=== PATIENT | female | born 1990 ===

== ENCOUNTER 2018-09-23 06:16 | Day surgery (SDC) | payer OTHER ==
--- NOTE | 2018-09-21 15:11 | Pre-Procedure Note/Attestation ---
Pre-Procedure Note/Attestation Complete Prior to Procedure Planned Procedure: bilateral Procedure Narrative: 1. ORIF nasal fracture 2. Septoplasty 3. Submucous resection bilateral inferior turbinates Indications for Procedure Pre-Operative Diagnosis: 1. Nasal fracture 2. Septoplasty 3. hypertrophied bilateral inferior turbinates Attestation I attest that I discussed the nature of the procedure; its benefits; risks and complications; and alternatives (and the risks and benefits of such alternatives ), prior to the procedure, with the patient (or the patient's legal open claims representative). I attest that, if there was a reasonable possibility of needing a blood transfusion, the patient (or the patient's legal open claims representative) was given the [place] [facility] standardized written summary, pursuant to the Luis Kasi Blood Safety Act ([place] Health and Safety Code # 1645, as amended). I attest that I re-evaluated the patient just prior to the surgery and that there has been no change in the patient's H&P. Keanu Bradford MD Sep 21, 2018 15:11
--- NOTE | 2018-09-21 15:12 | Brief Operative Note ---
Immediate Post Operative Note Operative Note Chief Complaint: Nasal deformity and nasal airway obstruction Pre-op Diagnosis: 1. Nasal fracture 2. Septoplasty 3. hypertrophied bilateral inferior turbinates Procedure: 1. ORIF nasal fracture 2. Septoplasty 3. Submucous resection bilateral inferior turbinates Post-op Diagnosis: same as pre-op Surgeon: Keanu Bradford Salon Customer Experience Specialist: none Additional Surgeons: none Anesthesiologist: Jaime Anesthesia: general Specimen: none Complications: none Condition: stable Fluids: D5LR Estimated Blood Loss: volume - 25cc Drains: none Packing: Sino-nasal gel Implant(s) used?: No Keanu Bradford MD Sep 21, 2018 15:12
--- NOTE | 2018-09-21 15:15 | Discharge Instructions ---
Discharge Instructions Discharge Instructions Follow up with: Daljit bran-pt has appt. at Dr. Bradford's office next week already scheduled Diet: regular Resume Normal Activity?: No Activity: light activity Pneumonia Vaccine: pt refused vaccine Influenza Vaccine (Dec to May): pt refused vaccine Follow Up Orders Pt. has printed instructions discussed and given to pt. at her pre op last week in my office. Rx for Z elli and [place] also sent electronically last week for post op use. Return to Work/School on: Oct 07, 2018 Special Instructions ice to face x 48 hours For Surgical Patients Dressing Care: may change May shower: No For Congestive Heart Failure Reminder Report to your physician any weight gain of 5 pounds or more in one week. Keanu Bradford MD Sep 21, 2018 15:15
--- NOTE | 2018-09-21 15:28 | History and Physical ---
History & Physical (DB) History & Physical History & Physical Chief Complaint: Nasal fracture with nasal airway obstruction. Reason for Hospitalization: outpt. nasal surgery History obtained from: Chart and Patient HPI: Meghan is a 28 year old female who presents with nasal deformity, septal deviation and hypertrophied inferior turbinates. Past Medical History: Childbirth x 1 Social History: Single, 1 9yo daughter Past Medical History:Childbirth Diagnosis:1. Nasal deformity secondary to fracture, Nasal septal deviation, Hypertrophied inferior turbinates. 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 Smoking status:smokes daily Alcohol use: social Drug use:none control/ protection:no BCP Family History:Unremarkable Allergies:Amoxicillin-rash Medications: Elavil for sleep Review of Symptoms: General ROS: no weight loss or fever Psychological ROS: no depression or mood changes, no memory loss Ophthalmic ROS: no visual changes or eye irritation ENT ROS: no nasal congestion, hearing loss, dizziness. POOR NASAL BREATHING Allergy and Immunology ROS: no allergic symptoms or urticaria Hematological and Lymphatic ROS: no swollen glands, unusual bleeding or bruising Endocrine ROS: no polyuria, polydipsia, weight changes, temperature intolerance Respiratory ROS: no cough, shortness of breath, or wheezing Cardiovascular ROS: no chest pain or dyspnea on exertion Gastrointestinal ROS: no abdominal pain, change in bowel habits, or black or bloody stools Musculoskeletal ROS: no myalgias or arthralgias Neurological ROS: no TIA or stroke symptoms Dermatological ROS: no new or changing skin lesions, rashes or pruritis Physical Exam Vitals: Intake/Output Summary (Last 24 hours) General appearance: alert, cooperative, no distress, appears stated age Head: Normocephalic, without obvious abnormality, atraumatic Eyes: conjunctivae/corneas clear. PERRL, EOM's intact. Throat: Lips, mucosa, and tongue normal. Teeth and gums normal NOSE: NASAL DEFORMITY, SEPTAL DEVIATION, HYPERTROPHIED INFERIOR TURBINATES. Neck: supple, symmetrical, trachea midline, no adenopathy, thyroid: not enlarged, symmetric, no tenderness/mass/nodules, no carotid bruit and no JVD Lungs: clear to auscultation bilaterally Heart: regular rate and rhythm, S1, S2 normal, no murmur, click, rub or gallop Abdomen: soft, non-tender. Bowel sounds normal. No masses, no organomegaly Extremities: extremities normal, atraumatic, no cyanosis or edema Pulses: 2+ and symmetric Skin: Skin color, texture, turgor normal. No rashes or lesions Neurologic: Grossly normal Laboratories:none indicated in otherwise healthy 28 yo female. test will be done on admission. Assessment/Problem List: 1. Nasal deformity secondary to fracture 2. Septal deviation 3. Hypertrophied inferior turbinates Plan: 1. ORIF nasal fracture 2. Septoplasty 3. Submucous resection bilateral inferior turbinates DVT Prophylaxis: scd Code status: full Hospital Classification declaration: Based on this initial evaluation, and depending on the patient's clinical course, I anticipate that this patient will NOT require hospitalization. Disposition: Once the patient is stable to leave the hospital, I anticipate the patient will likely be discharged to the following environment-Home I spent 70 minutes on this patient's case, and minutes was dedicated to counseling and/or care coordination. Case was discussed with Time of note may not reflect time of encounter. Keanu Bradford MD Sep 21, 2018 15:27
[2018-09-23] VITALS (15 sets, daily range): BP systolic 117–159; BP diastolic 76–105
[~2018-09-23] VITALS: Ht 167.6 cm; Wt 71.2 kg
[2018-09-23] MEDS ORDERED: Lidocaine 1% 10mg/ml/Epi 0.005mg/ml 30ml vial INJ ONE (07:06)
[2018-09-23] MEDS ORDERED: Cocaine HCl 4% 4ml vial TOPIC ONE (07:06)
[2018-09-23] MEDS ORDERED: Bupivacaine w/Epi 0.5% 30ml Vial INJ ONE (07:06)
[2018-09-23] MEDS ORDERED: LR 1000ml 1,000 ML IVLG SCH (07:13)
[2018-09-23] MEDS ORDERED: Labetalol 5mg/ml 20ml vial IV PRN (07:15)
[2018-09-23] MEDS ORDERED: Meperidine 50mg/ml Inj(FOR RIGORS ONLY) IVP PRN (07:15)
[2018-09-23] MEDS ORDERED: fentaNYL 100 mcg/2 mL IV PRN (07:15)
[2018-09-23] MEDS ORDERED: Midazolam 2mg/2ml Inj IVP PRN (07:15)
[2018-09-23] MEDS ORDERED: Azithromycin 500 MG in NS 275 ML IV ONE (07:15)
[2018-09-23] MEDS ORDERED: Ketorolac 30mg Inj IV PRN ×2 (07:15)
[2018-09-23] MEDS ORDERED: Metoclopramide 10mg/2ml Inj IVP PRN ×2 (07:15→08:30)
[2018-09-23] MEDS ORDERED: Atropine Sulfate 0.4mg/ml inj IVP PRN (07:15)
[2018-09-23] MEDS ORDERED: Hydromorphone 0.5mg/0.5ml inj IVP PRN (07:15)
[2018-09-23] MEDS ORDERED: HYDROcodone/Acetamin 7.5/325 tab ORAL PRN (07:15)
[2018-09-23] MEDS ORDERED: Acetaminophen (Non formulary) 100 ML IV ONE (07:15)
[2018-09-23] MEDS ORDERED: DiphenhydrAMINE 50mg/ml Inj IVP PRN (07:15)
[2018-09-23] MEDS ORDERED: LORazepam Inj 2mg/ml 1ml IV PRN (07:15)
[2018-09-23] MEDS ORDERED: HYDROcodone/Acetamin 5/325 tab ORAL PRN ×2 (07:15→08:30)
[2018-09-23] MEDS ORDERED: oxyCODONE HCL/Acetaminophen 5/325mg ORAL PRN (07:15)
--- NOTE | 2018-09-23 07:19 | Anethesia Preoperative Eval ---
Anesthesia Pre-op PMH/ROS General Date of Evaluation: Sep 23, 2018 Time of Evaluation: 07:24 Anesthesiologist: Jaime ASA Score: ASA 2 Mallampati Score Class I : Soft palate, uvula, fauces, pillars visible Class II: Soft palate, uvula, fauces visible Class III: Soft palate, base of uvula visible Class IV: Only hard plate visible Mallampati Classification: Class I Surgeon: Suzette Diagnosis: Nasal Deformity Surgical Procedure: Septoplasty, SMR Turbinates Anesthesia History: none Family History: no anesthesia problems Allergies: Coded Allergies: AMOXICILLIN (Verified Allergy, Intermediate, Rash, 09/21/18) NICKEL (Verified Allergy, Intermediate, rash, 09/22/18) Medications: see eMAR Patient NPO?: Yes Past Medical History Pulmonary: Reports: other - Bronchitis Gastrointestinal/Genitourinary: Reports: other - Irritable Bowel Neurologic/Psychiatric: Reports: depression/anxiety Anesthesia Pre-op Phys. Exam Physician Exam Last Vital Signs Date Time Temp Pulse Resp B/P (MAP) Pulse Ox O2 Delivery O2 Flow Rate FiO2 09/23/18 06:58 Room Air 09/23/18 06:44 97.2 92 18 137/82 99 Constitutional: NAD Neurologic: CN 2-12 intact Cardiovascular: RRR Respiratory: CTA Gastrointestinal: S/NT/ND Airway Exam Mallampati Score: Class I MO: full ROM: full Teeth: intact Anesthesia Pre-op A/P Labs Urine Test Test 09/23/18 06:30 Urine HCG, Qualitative Negative (NEGATIVE) Risk Assessment & Plan Assessment: ASA 2 Plan: GA, SED Status Change Before Surgery: No Pre-Antibiotics Dru Gram Ancef IV Given Within 1 Hr of Incision: Yes Time Given: 07:36 Kirill Sandoval MD Sep 23, 2018 07:19
--- NOTE | 2018-09-23 07:20 | Immediate Post-Op Evaluation ---
Immediate Post-Op Evalulation Immediate Post-Op Evalulation Procedure: Septoplasty, SMR Turbinates Date of Evaluation: Sep 23, 2018 Time of Evaluation: 08:45 IV Fluids: 700 LR Blood Products: 0 Estimated Blood Loss: 75 Urinary Output: 0 Blood Pressure Systolic: 154 Blood Pressure Diastolic: 105 Pulse Rate: 106 Respiratory Rate: 16 O2 Sat by Pulse Oximetry: 100 Temperature (Fahrenheit): 97.1 Pain Score (1-10): 2 Nausea: No Vomiting: No Complications 0 Patient Status: awake, reacts, patent, extubated, none Hydration Status: adequate Dru Gram Ancef IV Given Within 1 Hr of Incision: Yes Time Given: 07:36 Kirill Sandoval MD Sep 23, 2018 07:20
[2018-09-23] MEDS ORDERED: Dexamethasone 4mg/ml vial ONE (07:21)
[2018-09-23] MEDS ORDERED: Sodium Chloride 10ml vial INJ ONE (07:21)
[2018-09-23] MEDS ORDERED: Lidocaine 1% MPF 10mg/ml 5ml ONE (07:21)
--- NOTE | 2018-09-23 07:21 | 48 Hour Post Anesthesia Eval ---
Post Anesthesia Evaluation Procedure: Septoplasty, SMR Turbinates Date of Evaluation: Sep 23, 2018 Time of Evaluation: 10:54 Blood Pressure Systolic: 122 0: 73 Pulse Rate: 81 Respiratory Rate: 18 Temperature (Fahrenheit): 98.2 O2 Sat by Pulse Oximetry: 100 Airway: patent Nausea: No Vomiting: No Pain Intensity: 2 Hydration Status: adequate Cardiopulmonary Status: Stable Mental Status/LOC: patient returned to baseline Follow-up Care/Observations: 0 Post-Anesthesia Complications: 0 Follow-up care needed: ready to discharge Kirill Sandoval MD Sep 23, 2018 07:21
[2018-09-23] MEDS ORDERED: Dexamethasone 4mg/ml vial IVP ONE (07:30)
[2018-09-23] MEDS ORDERED: Sterile Water Irrig 1000ml IRRIG ONE (07:39)
[2018-09-23] MEDS ORDERED: Propofol 200mg/20ml IV ONE (07:39)
[2018-09-23] MEDS ORDERED: NS Irrig 1000ml ONE (07:39)
[2018-09-23] MEDS ORDERED: HYDROmorphone 1mg/ml Carpuject SUBQ PRN (08:30)
--- NOTE | 2018-09-23 12:00 | Operative Note - Dictated ---
DATE OF OPERATION: 09/23/2018 SURGEON: Keanu Bradford M.D. TIPPLE BOSS: None. ANESTHESIOLOGIST: Kirill Sandoval M.D. ANESTHESIA: LMA general anesthesia, 17 mL of 50:50 mixture, 1% lidocaine with 1:100,000 epinephrine and bupivacaine 0.5% with 1:200,000 epinephrine. PREOPERATIVE DIAGNOSES: 1. Nasal fracture. 2. Septal deviation. 3. Hypertrophied right and left inferior turbinates. POSTOPERATIVE DIAGNOSES: 1. Nasal fracture. 2. Septal deviation. 3. Hypertrophied right and left inferior turbinates. FINDINGS: 1. Nasal fracture. 2. Septal deviation. 3. Hypertrophied right and left inferior turbinates. PROCEDURE: 1. Open reduction and internal fixation nasal fracture. 2. Septoplasty. 3. Submucous resection of the right inferior turbinate. 4. Submucous resection of the left inferior turbinate. TECHNIQUE: Time-out was performed. All agreed as to the procedure and equipment required. I then injected with the aforementioned lidocaine, Marcaine, and epinephrine mixture. A 4 mL of 4% topical cocaine were placed in the nose, two nasal pledgets in either nostril accounted for at the end of the case. I then made an incision in the left septum with a #15 blade. Elevated submucosally with dental [place] sub-periosteum and sub-perichondrium. I then removed part of the vomer on either side and the lower 3 mm of the septum leaving a centimeter inferiorly of the quadrangular cartilage. I then sewed this back together with a 4-0 plain suture. I then made a small incision on either inferior turbinate with a #15 blade. Starting on the right side placed a Radiofrequency wand #45 setting of 6 x 10 seconds after coating with saline gel x2. The same was done on the left side. I then outfractured both with a Boies elevator. At the end of this procedure, I can the Boies elevator 360 degrees. Incision made lower lateral inside the nares and between the cartilage with a #15 blade. I elevated with . I then used a gouge osteotome to reduce the medial fracture and then a straight guarded osteotome to reduce the lower lateral fracture. There was no greenstick fracture and the nose move freely. I then proceeded to place a skin prep on the nose, Steri-Strips stent. A Sinu-Foam gel was placed in the nose. Mustache dressing placed. The patient was extubated, awake, and alert, and stable in the operating room. ESTIMATED BLOOD LOSS: 25 mL. COUNTS: None. DRAINS: None. I did go outside to look for her boyfriend in the recovery room waiting area. He was not there. I will check again. She is stable in the recovery room. Please note that she was given Ancef by the anesthesiologist. She has a history of allergy to amoxicillin, but seemed to do fine. Keanu Bradford M.D. DR: IVELISSE JOB#: [id number] CC:
== END 2018-09-23 11:00 | disposition home or self-care (01) ==
LOC: SUR 06:16
DX: S02.2XXA Fracture of nasal bones, initial encounter for closed fracture (principal); J34.2 Deviated nasal septum; J34.3 Hypertrophy of nasal turbinates; F17.210 Nicotine dependence, cigarettes, uncomplicated; Z88.0 Allergy status to penicillin; F32.9 Major depressive disorder, single episode, unspecified; F41.9 Anxiety disorder, unspecified
CPT/HCPCS: 21330; 30140; 30520; 81025; J0690; J1100; J1885; J2175; J2250; J2405; J2704; J2765; J3010; 94003; 94150